=== PATIENT | male | born 1935 | race Caucasian/White ===

== ENCOUNTER → 2017-05-18 | Outpatient (CLI) | payer MEDICARE, BC ==
[~2017-05-18] VITALS: Ht 172.7 cm; Wt 93.6 kg
[~2017-05-18] MED LIST: FLOMAX 0.40.4 MG/CAP PO; SINEMET 25/101 UDTAB PO; ZOCOR 40MG40 MG PO
[2017-05-18 08:35] VITALS: BP 161/89; PULSE 60
[2017-05-18 10:28] VITALS: BP 111/71; PULSE 58
[2017-05-18 10:43] VITALS: BP 120/78; PULSE 60
[2017-05-18 10:55] VITALS: BP 121/74; PULSE 55
== END ==
LOC: COL.RAD 05-13 09:00
DX: G31.9 Degenerative disease of nervous system, unspecified (principal); S32.010A Wedge compression fracture of first lumbar vertebra, initial encounter for closed fracture; M51.87 Other intervertebral disc disorders, lumbosacral region; R41.82 Altered mental status, unspecified
CPT/HCPCS: G9654; J2704; J3010

== ENCOUNTER → 2018-11-24 | Outpatient (CLI) | payer MEDICARE, BC ==
[~2018-11-24] VITALS: Ht 172.7 cm; Wt 95.1 kg
[~2018-11-24] MED LIST changes: +REMERON 15M15 MG/TA1 PO; +WELLBUTRIN SR150 M1 PO
[2018-11-24 11:41] VITALS: BP 169/94; PULSE 68
[2018-11-24 13:08] VITALS: BP 129/78; PULSE 57
[2018-11-24 13:18] VITALS: BP 129/78; PULSE 53
--- NOTE | 2018-11-24 14:30 | NUR ---
PT WAS TAKEN DOWN IN WHEELCHAIR TO POV. PT WAS ASSISTED INTO CAR.
== END ==
LOC: COL.RAD 11:21
DX: M48.56XA Collapsed vertebra, not elsewhere classified, lumbar region, initial encounter for fracture (principal); M48.061 Spinal stenosis, lumbar region without neurogenic claudication
CPT/HCPCS: J2704

== ENCOUNTER 2018-12-12 10:18 | Outpatient (CLI) | payer MEDICARE, BC ==
[2018-12-12] VITALS (8 sets, daily range): BP systolic 123–146; BP diastolic 72–82; PULSE 54–64; TEMP 97.5–98
[~2018-12-12] VITALS: Ht 172.8 cm; Wt 90.0 kg
[2018-12-12] MEDS ORDERED: SINEMET 25/101 UDTAB PO (10:58)
--- NOTE | 2018-12-12 12:25 | NUR ---
ALL MEDICATIONS GIVEN VORB WITH MD. SEE MERGE FOR ALL MEDICATION ADMIN TIMES. SEE MERGE FOR ALL RASS ASSESSMENTS DURING AND POST PROCEDURE.
--- NOTE | 2018-12-12 13:15 | NUR ---
Pt returned to EU 10 per bed s/p vertebroplasty. Pt resting well, daughter at bedside.
--- NOTE | 2018-12-12 14:30 | NUR ---
Pt denies pain with ambulation with SBA.
--- NOTE | 2018-12-12 14:55 | NUR ---
Pt has voided and chelsie PO intake s n/v. PIV removed with catheter intact.
--- NOTE | 2018-12-12 15:10 | NUR ---
Pt discharged per w/c by nurse with daughter.
== END 2018-12-12 15:18 | disposition home or self-care (01) ==
LOC: COL.CAR 10:18
DX: S32.020A Wedge compression fracture of second lumbar vertebra, initial encounter for closed fracture (principal); G20 Parkinson's disease; Z96.652 Presence of left artificial knee joint
CPT/HCPCS: J2250; J3010

== ENCOUNTER → 2019-02-14 | Outpatient (CLI) | payer MEDICARE, BC ==
[~2019-02-14] VITALS: Ht 172.8 cm; Wt 88.5 kg
[~2019-02-14] MED LIST changes: +ADVIL200 MG PO
[2019-02-14 08:56] VITALS: BP 159/91; PULSE 59
[2019-02-14 10:30] VITALS: BP 149/96; PULSE 55
[2019-02-14 10:38] VITALS: BP 131/85; PULSE 53
--- NOTE | 2019-02-14 10:45 | NUR ---
pt was taken to front lobby and assisted into daughters car,
[2019-02-14 10:47] VITALS: BP 146/88; PULSE 55
== END ==
LOC: COL.RAD 08:25
DX: M53.3 Sacrococcygeal disorders, not elsewhere classified (principal)
CPT/HCPCS: J2704

== ENCOUNTER 2019-05-03 10:51 | Inpatient (IN) | payer MEDICARE, BC ==
[~2019-05-03] VITALS: Ht 170.2 cm; Wt 92.2 kg
[2019-05-03 12:25] VITALS: BP 147/64; PULSE 62; TEMP 97.7
--- NOTE | 2019-05-03 12:34 | NUR ---
Pt arrives to medical unit rm [id number] from [facility] via EMS, awakens to stimuli and responds verbally, however does not open eyes, goes back to sleep quickly. Pt denies pain at this time. Left upper ext with redness to lateral edge from wrist to just superior to elbow, warm to touch. IV's to right hand and right forearm, no s/s of complications. IVF's and antibiotic clamped at this time until orders received from Provider. Pt's family at bedside. Provider notified of pt's arrival. No further needs reported. Call light in reach.
[2019-05-03] MEDS ORDERED: WELLBUTRIN XL150 MG PO (13:18)
[2019-05-03 15:42] LABS: CALCIUM 7.9 mg/dL (8.4-10.2); CREATININE, serum 0.62 (0.66-1.25); POTASSIUM 3.5 mmol/L (3.4-5.0)
--- NOTE | 2019-05-03 16:00 | NUR ---
Vancomycin Initial Dosing Pharmacy Note Ordering provider: Jeremy Paiz MD Indication/duration: SEPTIC ARTHRITIS Relevant comorbidities: DIABETES LABS: SCr 0.6, CrCl ~70 Recommendation: CONTINUE VANCOMYCIN DOSED AT [place] Loading dose: NONE, STARTED AT [place] 04/30/19. Maintenance dose: 1.5 grams every 12 hours Trough goal: 15-20 ug/mL. TROUGH 05/04/19 AT 1400.
[2019-05-03 16:47] VITALS: BP 157/63; PULSE 64; TEMP 97.6
--- NOTE | 2019-05-03 18:20 | NUR ---
Pt sitting up in bed, eating dinner, continues with disoriented conversation, cooperative with actions. No further needs reported. Call light in reach.
--- NOTE | 2019-05-03 19:15 | NUR ---
REPORT RECEIVED FROM SERENA CASTILLO; CARE OF PT ASSUMED AT THIS TIME. BEDSIDE ROUNDS COMPLETED AND PT IS SLEEPING, EASILY AROUSES. CALL LIGHT WITHIN REACH.
--- NOTE | 2019-05-03 20:30 | NUR ---
PT IS CONFUSED, DISORIENTED AND UNCOOPERATIVE AT THIS TIME. PT IS RESTLESS AND SEARCHING FOR "LAURI". PT CLIMBING OUT OF BED AND WANDERING AROUND IN ROOM AND INTO FAY, OTHER PT ROOMS. WHEN PT IS ASKED TO GO BACK TO HIS ROOM, PT BECOMES AGITATED AND NONCOMPLIANT. NURSING STAFF REQUIRED TO SIT WITH PT IN ORDER TO PROVIDE SAFETY. PT BACK INTO BED MULTIPLE TIMES AND THEN CLIMBS OVER BEDRAILS TO GET UP. PT USES BSC TO HAVE LARGE BM THEN IS MORE COMPLIANT TO REST IN BED AFTER BM. SITTER PROVIDED TO REMAIN IN PT ROOM FOR PT SAFETY. PT IS SLIGHTLY DYSPNEIC WITH ACTIVITY AND HAS SOME AUDIBLE WHEEZING NOTED, NPC. HR REG, NO EDEMA NOTED. ERYTHEMA AND EDEMA NOTED TO LUE FROM MID UPPER ARM THROUGH MID FOREARM, MOSTLY CENTERED AROUND ELBOW AREA WHERE PT HAS A SCABBED WOUND, NO DRAINAGE. PT DENIES PAIN WHEN ASKED. AREA IS DARK RED AND WARM TO TOUCH. BORDERS DRAWN AND REMAIN WITHIN AREA. PT IS INCONTINENT OF URINE. BED EXIT ALARM ACTIVATED AND SITTER REMAINS IN ROOM WITH PT. CALL LIGHT WITHIN REACH.
[2019-05-04] VITALS (8 sets, daily range): BP systolic 127–173; BP diastolic 53–84; PULSE 57–71; TEMP 97.8–98.8
--- NOTE | 2019-05-04 05:14 | NUR ---
PT CONTINUES TO BE CONFUSED AND CLIMBING OUT OF BED. ASSISTED PT UP TO [facility] WITH NO RESULTS. PT ASSISTED BACK TO BED; RESTLESS AND UNCOOPERATIVE. BED EXIT ALARM ACTIVATED. PT DENIES PAIN. CALL LIGHT WITHIN REACH.
[2019-05-04 06:22] LABS: HEMOGLOBIN 11.6 g/dl (13.5-18.0); MEAN CELL VOLUME 98 fl (80.0-100.0); MEAN CORPUSCULAR HEMOGLOBIN 32 pg (27.0-31.0); MEAN CORPUSCULAR HGB CONC 33 g/dl (33.0-37.0); MEAN PLATELET VOLUME 10.4 fl (7.4-10.4); PLATELET COUNT 174 K/mm3 (130-400); RED BLOOD COUNT 3.62 M/mm3 (4.20-5.60); REDCELL DISTRIBUTION WIDTH-CV 13.5 % (11.5-14.5)
[2019-05-04 06:31] LABS: HEMATOCRIT 35.3 % (42.0-52.0)
[2019-05-04 06:50] LABS: CALCIUM 8.1 mg/dL (8.4-10.2); CREATININE, serum 0.72 (0.66-1.25); POTASSIUM 3.1 mmol/L (3.4-5.0)
--- NOTE | 2019-05-04 07:00 | NUR ---
nurse to nurse report given to SERENA Mar and Rochelle Student Rn. pt had a restless night. Pt is NPO. Will continue to monitor-QUINCY Student RN.
--- NOTE | 2019-05-04 07:02 | NUR ---
PT HAS REMAINED CONFUSED THROUGH THE NIGHT WITH SOME EPISODES WORSE THAN OTHER TIMES. PT RESTED OCCASSIONALLY FOR SHORT PERIODS. HAS HAD LARGE BM X2 TONIGHT. OCC DYSPNEA NOTED WITH EXERTION AND AUDIBLE WHEEZING AT TIMES. PT IS CURRENTLY RESTING QUIETLY IN BED. DR SHAFER IN TO SEE PT THIS AM. CALL LIGHT WITHIN REACH, BED EXIT ALARM ACTIVATED.
[2019-05-04 07:11] LABS: BAND 20 % (0-10); BASOPHIL 2 % (0-2); EOSINOPHIL 3 % (0-4); LYMPHOCYTE 10 % (20.0-51.0); MYELOCYTE 2 % (0-0); NEUTROPHILS 58 % (42.0-75.2); PLATELET ESTIMATE NORMAL (NORMAL)
--- NOTE | 2019-05-04 07:30 | NUR ---
REPORT GIVEN TO SERENA AWAD; BEDSIDE ROUNDS COMPLETED AND PT RESTING QUIETLY AT THIS TIME. CALL LIGHT WITHIN REACH.
--- NOTE | 2019-05-04 09:59 | NUR ---
Initial visit; Patient thanked "Copier Field Service Technician for looking in on him and offering God's blessings.
--- NOTE | 2019-05-04 10:16 | NUR ---
Patient is awake and alert sitting up in recliner. Family is at bedside. MRI notified radiology and nursing staff that patient can't tolerate MRI without having full anesthesia sedation. Spoke with provider regarding this and they advised that I speak with orthopedics. Call placed to ortho and MRI was discontinued and CT with and without contrast was ordered. Family and patient are more comfortable with the switch. Radiology will contact when they are ready to get patient for testing. Left arm has swelling to posterior forearm. Is red, warm and firm to touch. Wishek color is noted to go up bicep and possibly outside of marked outline. Bicep is not as warm as the forearm. He states it is only tender and is able to freely move elbow and use hand without difficulty. There have been no noted behaviors this morning, has been cooperative and oriented. Did request to use the restroom and was assisted to commode and was continent. Call light and personal items are within reach.
--- NOTE | 2019-05-04 10:54 | NUR ---
Patient had 2 IV sites to right extremity, one in hand and one in the forearm. Both were painful when flushed. New IV placed to right wrist/forearm by administrative nursing supervisor.
--- NOTE | 2019-05-04 13:49 | NUR ---
Primary nurse was assisted with [phone] patient care by [employer] student Rochelle Gavin and [employer] instructor Nusrat Muniz RN-.
--- NOTE | 2019-05-04 14:56 | NUR ---
French Lecturer met with patient, patient's Ashley (ph#[phone]) and patient's daughter, Eleonora (ph#[phone]) to discuss discharge planning. Patient's other daughter, Lawanda (ph#[phone]) is on her way to the hospital. Both Eleonora and Lawanda live in [place]. Patient was alert and was able to answer some of the questions during intake accurately. Patient states he sees Dr. Balbir Corbin in [place] for primary care and obtains his medications from [place] [facility] with no issue. Patient is fairly independent with ADLS but has had some falls in the bathroom recently. Patient's reports leaving a light on near the bathroom has helped remedy this. Patient's and daughter did note that patient seems to be having some difficulty getting around in room. Patient's did express interest in Home Health possibly through [facility]. Patient has bars placed in the bathroom along with a shower chair. Patient also has an arm crutch that he utilizes. Patient has Advance Directives in place, however the documents are located at home. Patient's may be able to bring them in. SW to continue to follow.
--- NOTE | 2019-05-04 15:12 | NUR ---
Vancomycin Follow-up Pharmacy Note Current regimen: Vancomycin 1.5 gm IV q12h Vancomycin trough: 7.88 Adjustments: Will increase Vancomycin to 1.5 mg IV q8h as trough subtherapeutic for goal Vancomycin trough of ~15-20. Pharmacy will continue to monitor and check a Vancomycin trough on 05/05/19.
--- NOTE | 2019-05-04 18:43 | NUR ---
Patient is sitting up in recliner eating supper, daughter is at bedside. Is much more comfortable with placed PICC line. Denies pain. Call light and personal items within reach.
--- NOTE | 2019-05-04 20:10 | NUR ---
Pt assisted to BR with use of walker. Shuffling gait. HS meds given and VS monitored. L arm elevated on pillow. PICC line intact in R upper arm. Daughter leaves for the night. Bed alarm activated. Call light in reach. Fan on per pt request.
[2019-05-05 03:49] VITALS: BP 161/67; PULSE 62; TEMP 97.5
[2019-05-05 07:13] LABS: HEMOGLOBIN 11.8 g/dl (13.5-18.0); MEAN CELL VOLUME 98 fl (80.0-100.0); MEAN CORPUSCULAR HEMOGLOBIN 32 pg (27.0-31.0); MEAN CORPUSCULAR HGB CONC 32 g/dl (33.0-37.0); MEAN PLATELET VOLUME 10.2 fl (7.4-10.4); PLATELET COUNT 229 K/mm3 (130-400); RED BLOOD COUNT 3.71 M/mm3 (4.20-5.60); REDCELL DISTRIBUTION WIDTH-CV 13.6 % (11.5-14.5)
[2019-05-05 07:19] LABS: HEMATOCRIT 36.5 % (42.0-52.0)
[2019-05-05 07:33] LABS: CALCIUM 8.2 mg/dL (8.4-10.2); CREATININE, serum 0.62 (0.66-1.25); MAGNESIUM 2.3 mg/dL (1.6-2.3); POTASSIUM 3.1 mmol/L (3.4-5.0)
[2019-05-05 08:02] LABS: BAND 13 % (0-10); EOSINOPHIL 4 % (0-4); LYMPHOCYTE 12 % (20.0-51.0); METAMYELOCYTE 2 % (0-0); NEUTROPHILS 61 % (42.0-75.2); PLATELET ESTIMATE NORMAL (NORMAL)
--- NOTE | 2019-05-05 08:06 | NUR ---
Pt had very restless night. Up and down to the bathroom. 3-4 episodes of diarrhea. Incont several times. PICC line to right upper arm. Lab drawn this AM for r&d lab technician. Bed alarm on at all times. Try to elevate left arm on pillow but pt to restless to maintain L arm on pillow. Report given to SERENA Whitlock.
--- NOTE | 2019-05-05 09:46 | NUR ---
PATIENT ASSESSMENT COMPLETED. HE ASSISTED UP TO THE CHAIR WITH ONE ASSIST, WALKER AND GAIT BELT. HE REPORTS HE IS SLIGHTLY DIZZY WITH THIS ACTIVITY. DENIES PAIN OR OTHER NEEDS AT THIS TIME. BED ALARM IS ON.
[2019-05-05 11:58] VITALS: BP 143/63; PULSE 67; TEMP 98.5
--- NOTE | 2019-05-05 17:00 | NUR ---
Plan: To return home with Ashley as care [phone], and EMR, patient also wants and daughter Catalina Lance as EMR. DPOA is and daughter. Patient resides in [facility]. Assess: SW met with patient with daughters and at his bedside. Patient gave permission to discuss information in front of family. Patient reports that he uses a crutch at home, and that his PCP is Dr. Corbin in [place]. Patient reports he has an upcoming appointment on June 05. PAtient reports that he receives his medications from [facility] in [place] with no complications. We discussed home health choices, and a home health listing was left with the family. Action: SW will follow up to determind family choice. No additional concerns identified. Patient was educated on community resources and supports.
[2019-05-05 17:24] VITALS: BP 169/79; PULSE 77; TEMP 98.1
--- NOTE | 2019-05-05 18:02 | NUR ---
PATIENT AMBULATES IN THE HALLWAY WITH 1 ASSIST AND WALKER/GAITBELT. HE DENIES ANY PAINS. HE IS UNSTEADY WITH GAIT.
[2019-05-05 19:40] VITALS: BP 166/56; PULSE 72; TEMP 97.9
[2019-05-05 23:23] VITALS: BP 185/63; PULSE 65; TEMP 98.1
[2019-05-06 03:44] VITALS: BP 151/62; PULSE 64; TEMP 98.6
[2019-05-06 06:54] LABS: MEAN CELL VOLUME 98 fl (80.0-100.0); MEAN CORPUSCULAR HEMOGLOBIN 32 pg (27.0-31.0); MEAN CORPUSCULAR HGB CONC 33 g/dl (33.0-37.0); PLATELET COUNT 237 K/mm3 (130-400); RED BLOOD COUNT 3.73 M/mm3 (4.20-5.60); REDCELL DISTRIBUTION WIDTH-CV 13.5 % (11.5-14.5)
--- NOTE | 2019-05-06 06:59 | NUR ---
RESTING QUIETLY. PT OCCASIONALLY CALLS FOR ASSISTANCE TO AND FROM THE BATHROOM BUT MORE OFTEN HE DOESN'T CALL. NO c/o PAIN. LUE EDEMATOUS BUT DOESN'T FEEL WARM TO THE TOUCH.
[2019-05-06 07:01] LABS: HEMATOCRIT 36.4 % (42.0-52.0)
[2019-05-06 07:05] LABS: CALCIUM 8.3 mg/dL (8.4-10.2); CREATININE, serum 0.63 (0.66-1.25); MAGNESIUM 2.2 mg/dL (1.6-2.3); POTASSIUM 3.2 mmol/L (3.4-5.0)
[2019-05-06 07:37] LABS: BAND 7 % (0-10); LYMPHOCYTE 13 % (20.0-51.0); METAMYELOCYTE 6 % (0-0); MYELOCYTE 2 % (0-0); NEUTROPHILS 66 % (42.0-75.2); PLATELET ESTIMATE NORMAL (NORMAL)
[2019-05-06 08:16] VITALS: BP 161/85; PULSE 78; TEMP 98.4
--- NOTE | 2019-05-06 11:30 | NUR ---
patient is up in the chair he denies needs at this time.
[2019-05-06 13:15] VITALS: BP 130/69; PULSE 89; TEMP 98
--- NOTE | 2019-05-06 13:19 | NUR ---
Plan change: Patient is in need of more support than home health care. SW met with family and dtrs about decision. They reports that the patient wants to be closer to home in [facility] and wants a nusring home for there. and DTRs would like placement in [facility]. CURTIS sent referrals to [facility] f Made contact with Nicanor, awaiting result [facility] f Made contact with Maya, awaiting result [facility] f made contact Milton, awaiting result [facility] f Admin [phone] and Nursing Station [phone] Made contact for Gisela Matthews, awaiting results.
[2019-05-06 15:55] VITALS: BP 143/66; PULSE 76; TEMP 98.1
--- NOTE | 2019-05-06 16:09 | NUR ---
[facility]-Accepted for Skilled. Patients first choice is [facility]. DTR and Spouse first choice is [facility]. Please honor patients first choice if they accept.
--- NOTE | 2019-05-06 19:12 | NUR ---
LEFT ARM REDNESS IS RESOLVING LIGHT IN COLOR. HE DENIES PAIN SWELLING IS 1+
[2019-05-06 19:42] VITALS: BP 131/85; PULSE 75; TEMP 98.1
--- NOTE | 2019-05-06 20:15 | NUR ---
Shift assessment complete. Pt resting in bed, awake, a&o c int confused/ inappropriate statements. Pt denies pain or any other c/o at this time. PICC noted to R upper arm, patent c good blood return. Tele in place. Pt denies needs at this time. Call light in reach, bed alarm on. Will continue to monitor.
[2019-05-06 23:40] VITALS: BP 156/73; PULSE 63
[2019-05-07 05:52] VITALS: BP 162/90; PULSE 70; TEMP 98
[2019-05-07 06:26] LABS: HEMATOCRIT 38.6 % (42.0-52.0); HEMOGLOBIN 12.6 g/dl (13.5-18.0); MEAN CELL VOLUME 98 fl (80.0-100.0); MEAN CORPUSCULAR HEMOGLOBIN 32 pg (27.0-31.0); MEAN CORPUSCULAR HGB CONC 33 g/dl (33.0-37.0); MEAN PLATELET VOLUME 10.1 fl (7.4-10.4); PLATELET COUNT 263 K/mm3 (130-400); RED BLOOD COUNT 3.94 M/mm3 (4.20-5.60); REDCELL DISTRIBUTION WIDTH-CV 13.6 % (11.5-14.5)
[2019-05-07 06:43] LABS: CALCIUM 8.7 mg/dL (8.4-10.2); CREATININE, serum 0.69 (0.66-1.25); MAGNESIUM 2.2 mg/dL (1.6-2.3); POTASSIUM 3.7 mmol/L (3.4-5.0)
[2019-05-07 07:07] LABS: BAND 12 % (0-10); EOSINOPHIL 2 % (0-4); LYMPHOCYTE 20 % (20.0-51.0); MYELOCYTE 4 % (0-0); NEUTROPHILS 57 % (42.0-75.2); PLATELET ESTIMATE NORMAL (NORMAL)
--- NOTE | 2019-05-07 07:45 | NUR ---
Patient is sitting up in chair with eyes closed. Arouses easily. Medications administered. Left arm is still discolored and noted to have swelling. States he is having no pain. Moves left elbow freely. Potassium protocol is in use, does require 2 doses of effervescent. Did take first dose without issue. Respirations are even and nonlabored. Alarm is in place. Call light and personal items are within reach.
[2019-05-07 08:08] VITALS: BP 150/75; PULSE 80; TEMP 97.4
[2019-05-07] MEDS ORDERED: ZESTRIL 20MG TA20 MG PO (08:17)
[2019-05-07] MEDS ORDERED: ADVIL200 MG PO (08:19)
[2019-05-07] MEDS ORDERED: TYLENOL 325MG325 MG PO (08:19)
[2019-05-07] MEDS ORDERED: BD POSIFLUSH SF10 ML IV (08:20)
[2019-05-07] MEDS ORDERED: NORCO 325 MG-51 TAB PO (08:20)
[2019-05-07] MEDS ORDERED: CEFAZOLIN SODI100 ML IV (09:00)
--- NOTE | 2019-05-07 09:03 | NUR ---
Milton, at [facility], reports that they are able to accept the patient. SW to inform the patient and will continue to follow.
--- NOTE | 2019-05-07 10:34 | NUR ---
Elizabeth, at [facility], reports that they are able to accept the patient and that Dr. Corbin will follow the patient. SW informed the patient and contacted and informed the patient's . The patient's reports that she would like to contact her daughters before making a final decision on preference and to contact her [id number] to see if he can help with transportation. SW to continue to follow.
--- NOTE | 2019-05-07 10:54 | NUR ---
The patient's , Ashley, contacted CURTIS to inform that they have decided to pursue [facility]. Ashley states that her and her [id number] will be here at 1300 to provide transportation to swing bed. CURTIS contacted and updated Jess at [facility]. CURTIS also contacted and updated [facility], [facility], and [facility]. The patient is to discharge today, 05/07, to [facility]. Transportation to be by private vehicle, via the patient's brother and . CURTIS presented and explained the IM form to the patient. The patient verbalized understanding, signed, and he was provided a copy. No additional needs at this time.
--- NOTE | 2019-05-07 15:43 | NUR ---
Patient discharged to [facility] swing bed. Picked up by brother accompanied. Personal belongings and transfer packet sent with patient. Assisted into private vehicle without difficulty. Report called to swing bed facility.
== END 2019-05-07 13:15 | DRG 603 ==
LOC: MEDICAL 10:51
PROVIDERS: Nurse Practitioner Family; ADMIT Hospitalist
PROC: 02HV33Z Insertion of Infusion Device into Superior Vena Cava, Percutaneous Approach (ICD-10-PCS; principal; 2019-05-04)
DX: L03.114 Cellulitis of left upper limb (principal); J98.11 Atelectasis; M70.22 Olecranon bursitis, left elbow; G20 Parkinson's disease; E78.5 Hyperlipidemia, unspecified; N40.0 Benign prostatic hyperplasia without lower urinary tract symptoms; E87.6 Hypokalemia; E11.9 Type 2 diabetes mellitus without complications; R41.82 Altered mental status, unspecified; Z96.652 Presence of left artificial knee joint
CPT/HCPCS: 99222-AI; 99231-AI; 99233-AI; 99239; A4216; A9284; C1751; J0690; J1650; J2185; J3370; J3480; J7050

== ENCOUNTER 2020-01-31 09:32 | Observation (INO) | payer MEDICARE, BC ==
[~2020-01-31] VITALS: Ht 177.8 cm; Wt 93.1 kg
[~2020-01-31 09:32] MED LIST changes: +BD POSIFLUSH SF10 ML IV; +CEFAZOLIN SODI100 ML IV; +NORCO 325 MG-51 TAB PO; +SINEMET-25/251 UDTAB PO; +TYLENOL 325MG325 MG PO; +WELLBUTRIN XL300 M1 PO; +ZESTRIL 20MG TA20 MG PO
[2020-01-31 14:19] LABS: BASO % 0.2 % (0.0-2.0); EOS % 0.1 % (0-4.0); GRAN # 10.2 (1.4-6.5); GRAN % 84.5 % (42.2-75.2); HEMATOCRIT 45.8 % (42.0-52.0); HEMOGLOBIN 14.7 g/dl (13.5-18.0); LYMPH # 0.8 (1.2-3.4); LYMPH % 6.4 % (20.0-51.0); MEAN CELL VOLUME 96 fl (80.0-100.0); MEAN CORPUSCULAR HEMOGLOBIN 31 pg (27.0-31.0); MEAN CORPUSCULAR HGB CONC 32 g/dl (33.0-37.0); MEAN PLATELET VOLUME 10.2 fl (7.4-10.4); MONO % 8.2 % (1.7-9.3); PLATELET COUNT 202 K/mm3 (130-400); RED BLOOD COUNT 4.78 M/mm3 (4.20-5.60); REDCELL DISTRIBUTION WIDTH-CV 13.4 % (11.5-14.5)
[2020-01-31 14:30] LABS: ALANINE AMINOTRANSFERASE 15 U/L (4-49); ALBUMIN 4.3 gm/dL (3.5-5.0); ALKALINE PHOSPHATASE 74 U/L (50-136); ANION GAP 13 mmol/L (7-16); AST,SGOT 30 U/L (15-37); BILIRUBIN,TOTAL 0.7 mg/dL (0.0-1.0); BLOOD UREA NITROGEN 14 mg/dL (9-20); CALCIUM 8.9 mg/dL (8.4-10.2); CARBON DIOXIDE 19 mmol/L (22-30); CHLORIDE 107 mmol/L (98-107); CREATINE KINASE 278 U/L (55-170); CREATININE, serum 1.08 (0.66-1.25); GLUCOSE 233 mg/dL (74-106); SODIUM 139 mmol/L (137-145); TOTAL PROTEIN 7.4 gm/dL (6.4-8.2)
[2020-01-31 14:43] LABS: TROPONIN-I < 0.012 ng/mL (0.000-0.035)
[2020-01-31 14:55] LABS: PROTHROMBIN TIME 11.6 SECONDS (9.7-12.8)
[2020-01-31 14:58] LABS: PARTIAL THROMBOPLASTIN TIME 27.3 SECONDS (26.0-37.0)
--- NOTE | 2020-01-31 16:35 | NUR ---
Flight Deck Officer received consult from ED. Patient has parkinsons and fell off his mower today, resulting in an arm fracture. Patient not safe to return home. CURTIS contacted patient's , Ashley about a private pay stay at SNF or Inpatient Rehab. CURTIS faxed referrals to [facility], [facility], [facility], [facility], [facility], [facility], [facility], [facility], [facility], and [facility] All three IPR placements declined referral. [facility] is able to accept today. [facility] can possibly accept tomorrow. CURTIS followed up with Ashley who reports their first preference would be [facility], but would also be agreeable to [facility]. Ashley advised that patient has parkinsons and they have been trying to limit his access to heavy machinery. Ashley advised they have someone who can mow for them but patient was insistent on mowing today, then he fell. CURTIS provided private pay rates for [facility], [facility], and [facility]. CURTIS was updated by the ED that patient to be admitted observation. CURTIS provided this update to patient's , Ashley and Surgical CURTIS [place].
[2020-01-31 16:59] VITALS: BP 151/76; PULSE 91; TEMP 98.3
--- NOTE | 2020-01-31 18:18 | NUR ---
PT TO ROOM 325 PER CART FROM ED. RERAMONRT FROM [facility]OT[facility]. OT IS A/O X3 WITH INTERMITTANT CONFUSION. HE HAS PARKINSONS AND SHUFFLING GAIT. TRANSFER X2. HEALING WOUND TO MEDIAL LLE. DRESSED WITH TELFA AND KERLIX. FREDO COOPER FOR ORTHO IN TO SEE PATIENT THIS PM. GENERAL DIET, COVID SWAB COMPLETE.
[2020-01-31 18:33] LABS: COLLECTION METHOD CLEAN CATCH
[2020-01-31 18:42] LABS: MUCOUS Present /lpf; PH 6 (5-8); URINE APPEARANCE Hazy; URINE BACTERIA None Seen /hpf; URINE BILIRUBIN Negative (NEGATIVE); URINE BLOOD 1+ (NEGATIVE); URINE COLOR Yellow; URINE GLUCOSE Negative (NEGATIVE); URINE KETONE Trace (NEGATIVE); URINE LEUKOCYTE ESTERASE Negative (NEGATIVE); URINE NITRATE Negative (NEGATIVE); URINE PROTEIN(semi-quant) Negative (NEGATIVE); URINE RBC 0-2 /hpf; URINE UROBILINOGEN Negative (NEGATIVE)
--- NOTE | 2020-01-31 19:01 | NUR ---
REPORT TO HERACLIO LYONS.
[2020-01-31 19:39] VITALS: BP 153/81; PULSE 92; TEMP 98.7
--- NOTE | 2020-01-31 19:50 | NUR ---
Assessment complete. Resting in bed. Television on. Lue extermity split CDI, sling and swath in place. Reports "arm hurts" unable to define pain. 2 assist to bedside commode. Denies other needs at this time.
[2020-02-01 00:52] VITALS: BP 139/73; PULSE 86; TEMP 97.9
[2020-02-01 04:30] VITALS: BP 109/64; PULSE 59; TEMP 98.3
[2020-02-01 07:58] VITALS: BP 151/75; PULSE 75; TEMP 97.4
--- NOTE | 2020-02-01 08:27 | NUR ---
PT UP SEVERAL TIMES TO BR. VOIDS SM AMTS TO BSC. SHUFFLING PARKINSONIAN GAIT. PT DENIES NEEDS AT THIS TIME. PT IS A/OX3 WITH INTERMITTANT CONFUSION/NOT PROCESSING. LEFT ARM IN SLING AND SWATH. DRESSING TO LLE. PT ATE 100% OF BREAKFAST.
--- NOTE | 2020-02-01 09:14 | NUR ---
The patient was seen in the ED yesterday by ED dialysis social worker. The patient was not safe to return home and referrals had been sent to [facility] and [facility]. CURTIS contacted Gabby at [facility] to inform her that the patient had been admitted and to follow up on referral. Gabby reports that the patient's , Ashley, already completed paperwork with them and that they are able to accept him. Gabby states that they plan on picking him up at 1000 today, but need his COVID results back first. The patient's COVID results are still pending. CURTIS collaborated with the patient's RN, hospitalist, and [employer]. A rapid test was ordered. Pending results. CURTIS informed Gabby at [facility]. A tentative transport time was set at 1300. CURTIS contacted and updated the patient's , Ashley. Ashley is agreeable to the plan. SW to continue to follow.
[2020-02-01 12:04] VITALS: BP 150/71; PULSE 64; TEMP 98.3
[2020-02-01] MEDS ORDERED: NORCO 325 MG-51 TAB PO (12:26)
--- NOTE | 2020-02-01 12:42 | NUR ---
The patient's COVID results came back negative. CURTIS notified and faxed the results to [facility]. The patient is to discharge today, 01/31, to [facility] for a private pay skilled stay. Transportation was scheduled at 1300, via [facility]. CURTIS informed the patient, his RN, and the patient's via phone. They were all agreeable to the time. No additional needs at this time.
--- NOTE | 2020-02-01 13:39 | NUR ---
REPORT CALLED TO [facility]. RN ON DUTY TOOK REPORT KWAN.
== END 2020-02-01 13:30 ==
LOC: COL.ER 09:32 → SURG 16:03
PROVIDERS: Emergency Medicine; ADMIT Hospitalist
DX: S42.342A Displaced spiral fracture of shaft of humerus, left arm, initial encounter for closed fracture (principal); G20 Parkinson's disease; N40.0 Benign prostatic hyperplasia without lower urinary tract symptoms; E78.5 Hyperlipidemia, unspecified; E11.9 Type 2 diabetes mellitus without complications; R00.0 Tachycardia, unspecified; M47.892 Other spondylosis, cervical region; M48.02 Spinal stenosis, cervical region; M50.323 Other cervical disc degeneration at C6-C7 level; W17.89XA Other fall from one level to another, initial encounter; Y92.007 Garden or yard of unspecified non-institutional (private) residence as the place of occurrence of the external cause; W06.XXXA Fall from bed, initial encounter; Y92.230 Patient room in hospital as the place of occurrence of the external cause; Z23 Encounter for immunization; Z79.899 Other long term (current) drug therapy
CPT/HCPCS: 99222-AI; G0378; J1644; J3010; J7030; Q4050